=== PATIENT | female | born 1975 | race Caucasian/White ===

== ENCOUNTER 2019-02-07 17:59 | Inpatient (IN) | payer OTHER ==
[~2019-02-07] VITALS: Ht 157.5 cm; Wt 86.6 kg
[~2019-02-07 17:59] MED LIST: ATENOLOL 25 MG25 M1; BACTRIM; BACTRIM DS TAB1 EACH PO; BENADRYL ALLERG25 MG PO; BLOOD PRESSURE MED; BUTALB-ACETAMI1 EAC1 PO; BUTALB-APAP-CA1 EAC1 PO; CAPACET CAPSUL1 EACH; CIPRO500 MG PO; CIPROFLOXACIN500 M1 PO; CLONAZEPAM 1 MG1 M1 PO; ESGIC; ESGIC PLUS; FIORICET; FLEXERIL PO; HYDROCODON-ACE1 EAC7 PO; HYDROCODON-ACE1 EACH PO; IBUPROFEN 800800 M1 PO; K-DUR 20 MEQ T20 MEQ PO; KEFLEX500 MG PO; LISINOPRIL10 MG PO; MACROBID 100 M100 M1 PO; MEDROLDOSEPACK PO; METHOCARBAMOL500 M1; NEURONTIN 300300 M1; NEURONTIN 300300 M1 PO; NEURONTIN600 MG PO; NOHOMEMEDICATIONS; NORCO 5-325 TA1 EACH PO; ONDANSETRON HCL4 M2 PO; PEPCID AC20 M1 PO; PERCOCET 5-3251 EACH; PERCOCET 5-3251 EACH PO; PHENAZOPYRIDIN200 M2 PO; PHENERGAN 25 MG25 M1 PO; POTASSIUM20 PO; PREDNISONE 10 M10 M1 PO; PREDNISONE 20 M20 M1 PO; PROAIR HFA8.5 GM; PROPRANOLOL 4040 MG PO; RELPAX40 MG; ROBAXIN 750 MG750 M1 PO; SILVADENE20 GM TP; TAMSULOSIN HCL0.4 M1 PO; TAMSULOSIN HCL0.4 MG PO; TIZANIDINE HCL4 M1; TRAMADOL 50 MG50 MG; TRAMADOL 50 MG50 MG PO; VERAPAMIL ER180 M1; VICODIN 5-3001 EACH PO; VICODIN 5-5001 EACH PO; VICOPROFEN 2001 EACH PO; ZOFRAN 4 MG ORAL4 MG PO; ZOFRAN ODT4 MG PO; ZOFRAN4 MG PO; ZPAK PO; [UNRECOGNIZED DRUG - OTHER]
[2019-02-07 18:07] VITALS: BP 138/93
[2019-02-07 18:54] LABS: ABSOLUTE EOSINOPHILS 0.1 thou/uL (0.0-0.7); ABSOLUTE LYMPHOCYTES 0.7 thou/uL (0.8-5.3); ABSOLUTE MONOCYTES 1.3 thou/uL (0.0-1.2); ABSOLUTE NEUTROPHILS 9.8 thou/uL (1.6-8.1); BASOPHILS 0.1 %; EOSINOPHILS 0.6 %; HEMATOCRIT 34.8 % (37.0-47.0); HEMOGLOBIN 11.5 gm/dL (12.0-15.0); LYMPHOCYTES 5.7 %; MCH 28.7 pg (26.0-34.0); MCHC 33.2 g/dL (28.0-37.0); MCV 86.6 fL (80.0-100.0); MONOCYTES 10.7 %; MPV 8.6 fl. (7.2-11.1); NUCLEATED RBCS 0 /100WBC; PLATELET COUNT* 340 thou/uL (150-400); POLYS 82.9 %; RBC 4.02 mil/uL (4.20-5.00); WBC 11.8 thou/uL (4.0-11.0)
[2019-02-07 19:06] LABS: CALCIUM 8.7 mg/dL (8.5-10.1); CREATININE 0.7 mg/dL (0.6-1.3)
[2019-02-07 19:11] LABS: ALBUMIN 2.9 g/dL (3.4-5.0); TOTAL BILIRUBIN 0.5 mg/dL (<0.1-1.0); TOTAL PROTEIN 7.8 g/dL (6.4-8.2)
[2019-02-07 19:13] LABS: URINE BILIRUBIN NEGATIVE (Negative); URINE BLOOD 3+ (Negative); URINE CLARITY SL CLOUDY; URINE COLOR YELLOW; URINE GLUCOSE-RANDOM NEGATIVE (Negative); URINE KETONES NEGATIVE (Negative); URINE LEUKOCYTES-REFLEX 1+ (Negative); URINE PROTEIN 1+ (Negative)
[2019-02-07 19:15] LABS: URINE NITRITE-REFLEX POSITIVE (Negative)
[2019-02-07 19:21] LABS: SQUAMOUS 4-10 Moderate /LPF (0-3)
[2019-02-07 19:22] LABS: BACTERIA-REFLEX >30 Many /HPF (None Seen); CASTS None Seen /LPF (None Seen); CRYSTALS None Seen /LPF (None Seen); MUCUS >6 Heavy strn/LPF (None Seen); URINE RBC 3-10 Few /HPF (0-2); URINE WBC-REFLEX 6-15 Few /HPF (0-5)
[2019-02-07 19:23] LABS: WBC CLUMPS Few (None Seen)
[2019-02-07 21:06] LABS: AMP/METHAMP POSITIVE (Negative); BARBITURATES Negative (Negative); BENZODIAZEPINES Negative (Negative); COCAINE Negative (Negative); METHADONE Negative (Negative); OPIATES Negative (Negative); PCP Negative (Negative); THC Negative (Negative)
[2019-02-07 22:30] VITALS: BP 100/60
[2019-02-08 02:50] VITALS: BP 102/60
[2019-02-08 08:00] VITALS: BP 149/73
[2019-02-08 11:30] VITALS: BP 129/79
[2019-02-08 16:00] VITALS: BP 116/67
[2019-02-08 20:00] VITALS: BP 127/74
[2019-02-09] VITALS: BP 138/65
[2019-02-09 02:10] LABS: HIV-1/HIV-2 ANTIBODY Non Reactive (Non Reactive)
[2019-02-09 04:57] LABS: HEMOGLOBIN 9.8 gm/dL (12.0-15.0); MCH 29.6 pg (26.0-34.0); MCHC 33.7 g/dL (28.0-37.0); MCV 87.8 fL (80.0-100.0); MPV 8.7 fl. (7.2-11.1); RBC 3.3 mil/uL (4.20-5.00); RDW-CV 13.1 % (10.5-14.5); WBC 8.3 thou/uL (4.0-11.0)
[2019-02-09 05:05] LABS: CALCIUM 8.2 mg/dL (8.5-10.1); CREATININE 0.6 mg/dL (0.6-1.3); MAGNESIUM 1.9 mg/dL (1.8-2.4); POTASSIUM 3.6 mmol/L (3.5-5.1)
[2019-02-09 08:00] VITALS: BP 135/79
--- NOTE | 2019-02-09 12:25 | EKG ---
[place] [address] ELECTROCARDIOGRAM REPORT Name: ANJELICA GO Room: [place] [address] ADM IN ..#: [id number] Admission: 02/07/19 Attend Phys: Maycol Stubbs MD Discharge: Date of : 73 Report #: [id number] THIS REPORT FOR: //name// [facility] ED Test Date: 2019-02-07 Test Time: 18:56:19 Pat Name: ANJELICA GO Department: Room: [facility] Gender: F Scheduling Assistant: NATY Mina : 1975 Requested By: Ish Hooper Order Number: [id number] MD: Bob Craig Measurements Intervals [place] Rate: 109 P: 47 OK: 132 QRS: 40 QRSD: 101 T: 19 QT: 342 QTc: 461 Interpretive Statements Sinus tachycardia Probable left atrial enlargement Minimal ST depression, inferior leads No previous ECG available for comparison Electronically Signed On 02-09-2019 12:24:57 CDT by Bob Craig [email or web address] <ELECTRONICALLY SIGNED> By: Bob Craig MD, [facility] 02/09/19 1224 55 55 Bob Craig MD, FACC /EPI
[2019-02-09 16:11] VITALS: BP 138/82
--- NOTE | 2019-02-09 16:12 | 2DMMODE ---
[place] [address] 2 D/M-MODE ECHOCARDIOGRAM Name: ANJELICA GO Room: [facility] ADM IN [facility]#: [id number] Admission: 02/07/19 Attend Phys: Maycol Stubbs, Discharge: Date of : 73 Date of Service: 02/09/19 1611 Report #: [id number] THIS REPORT FOR: //name// APPROVED REPORT Study performed: 02/09/2019 14:09:14 EXAM: Comprehensive 2D, Doppler, and color-flow Echocardiogram Patient Location: In-Patient Room #: 227 Status: routine BSA: 1.74 HR: 86 bpm BP: 138/65 mmHg Rhythm: NSR Other Information Study Quality: Good Indications Sepsis rule out valvular vegetation 2D Dimensions IVSd: 12.00 (7-11mm) LVOT Diam: 20.28 (18-24mm) LVDd: 50.56 mm PWd: 11.39 (7-11mm) Ascending Ao: 27.59 (22-36mm) LVDs: 33.52 (25-40mm) Aortic Root: 29.95 mm Volumes Left Atrial Volume (Systole) LA ESV Index: 29.00 mL/m2 Aortic Valve AoV Peak Amarjit.: 1.34 m/s AO Peak Gr.: 7.16 mmHg LVOT Max P.76 mmHg AO Mean Gr.: 3.87 mmHg LVOT Mean P.48 mmHg LVOT Max V: 1.09 m/s AO V2 VTI: 26.00 cm LVOT Mean V: 0.74 m/s SUHAS (VTI): 2.88 cm2 LVOT V1 VTI: 23.15 cm Mitral Valve E/A Ratio: 1.71 MV Decel. Time: 221.70 [place] [address] 2 D/M-MODE ECHOCARDIOGRAM Name: ANJELICA GO Room: [address] [place] .R.#: [id number] Admission: 02/07/19 Attend Phys: Maycol Stubbs, Discharge: Date of : 73 Date of Service: 02/09/19 1611 Report #: [id number] MV E Max Amarjit.: 0.93 m/s MV PHT: 64.29 ms MVA (PHT): 3.42 cm2 TDI E/Lateral E': 4.65 E/Medial E': 7.15 Medial E' Amarjit.: 0.13 m/s Lateral E' Amarjit.: 0.20 m/s Pulmonary Valve PV Peak Amarjit.: 1.02 m/s PV Peak Gr.: 4.14 mmHg Tricuspid Valve RAP Estimate: 5.00 mmHg TR Peak Gr.: 22.72 mmHg RVSP: 27.00 mmHg PA Pressure: 27.00 mmHg Left Ventricle The left ventricle is normal size. There is normal LV segmental wall motion. Mild concentric left ventricular hypertrophy. Left ventricular systolic function is normal. The left ventricular ejection fraction is within the normal range. LVEF is 55-60%. The left ventricular diastolic function is normal. Right Ventricle The right ventricle is normal size. The right ventricular systolic function is normal. Atria Left atrium is mildly dilated. The right atrium size is normal. Aortic Valve The aortic valve is normal in structure. No aortic regurgitation is present. There is no aortic valvular stenosis. Mitral Valve The mitral valve is normal in structure. Trace mitral regurgitation. No evidence of mitral valve stenosis. Tricuspid Valve The tricuspid valve is normal in structure. Trace tricuspid regurgitation. estimated pa pressure 30 mm Hg Pulmonic Valve The pulmonary valve is normal in structure. [place] [address] 2 D/M-MODE ECHOCARDIOGRAM Name: ANJELICA GO [place] Room: [address] IN [facility]#: [id number] Admission: 02/07/19 Attend Phys: Maycol Stubbs, Discharge: Date of : 73 Date of Service: 02/09/19 1611 Report #: [id number] valvular regurgitation. Great Vessels The aortic root is normal in size. IVC is normal in size and collapses >50% with inspiration. Pericardium There is no pericardial effusion. <Conclusion> Mild concentric left ventricular hypertrophy. Left atrium is mildly dilated. LVEF is 55-60%. <ELECTRONICALLY SIGNED> By: Bob Craig MD, FACC 02/09/19 161 10 10 Bob Craig MD, FACC /INF
[2019-02-09 19:41] VITALS: BP 108/70
[2019-02-10 04:00] VITALS: BP 148/83
[2019-02-10 05:15] LABS: CALCIUM 8.4 mg/dL (8.5-10.1); CREATININE 0.7 mg/dL (0.6-1.3); MAGNESIUM 1.9 mg/dL (1.8-2.4); POTASSIUM 3.7 mmol/L (3.5-5.1)
[2019-02-10 07:11] LABS: HEPATITIS B SURFACE AG Negative (Negative)
[2019-02-10 08:00] VITALS: BP 127/71
[2019-02-10 11:58] VITALS: BP 128/63
[2019-02-10 15:51] VITALS: BP 116/80
[2019-02-11 08:00] VITALS: BP 140/98
[2019-02-11] MEDS ORDERED: PROBIOTIC1 EAC1 PO (11:04)
[2019-02-11] MEDS ORDERED: CEFUROXIME250 MG PO (11:04)
[2019-02-11 12:00] VITALS: BP 140/98; BP 152/91
== END 2019-02-11 17:40 | disposition home or self-care (01) | DRG 872 ==
LOC: M.ERS 17:59 → M.TBA-ER 20:49 → M.2W 20:49
PROVIDERS: Physician Assistant; ADMIT Internal Medicine
DX: A41.9 Sepsis, unspecified organism (principal); N12 Tubulo-interstitial nephritis, not specified as acute or chronic; E44.0 Moderate protein-calorie malnutrition; B96.89 Other specified bacterial agents as the cause of diseases classified elsewhere; M19.032 Primary osteoarthritis, left wrist; G43.909 Migraine, unspecified, not intractable, without status migrainosus; Z90.710 Acquired absence of both cervix and uterus; Z87.442 Personal history of urinary calculi; Z90.711 Acquired absence of uterus with remaining cervical stump; Z88.6 Allergy status to analgesic agent; Z88.0 Allergy status to penicillin; Z88.8 Allergy status to other drugs, medicaments and biological substances; Z68.34 Body mass index [BMI] 34.0-34.9, adult

== ENCOUNTER 2019-06-15 19:32 | Emergency (ER) | payer OTHER ==
[~2019-06-15] VITALS: Ht 157.5 cm; Wt 77.1 kg
[~2019-06-15 19:32] MED LIST changes: +CEFUROXIME250 MG PO; +PROBIOTIC1 EAC1 PO
[2019-06-15 19:40] VITALS: BP 168/90
[2019-06-15] MEDS ORDERED: HYDROCODON-ACE1 EAC8 PO (19:49)
[2019-06-15] MEDS ORDERED: CLEOCIN HCL150 MG PO (19:49)
== END 2019-06-15 20:08 | disposition home or self-care (01) ==
LOC: M.ERS 19:32
DX: K02.9 Dental caries, unspecified (principal); I10 Essential (primary) hypertension; G43.909 Migraine, unspecified, not intractable, without status migrainosus; Z90.49 Acquired absence of other specified parts of digestive tract; Z90.89 Acquired absence of other organs; Z90.710 Acquired absence of both cervix and uterus; Z86.14 Personal history of Methicillin resistant Staphylococcus aureus infection; Z88.5 Allergy status to narcotic agent; Z88.6 Allergy status to analgesic agent; Z88.8 Allergy status to other drugs, medicaments and biological substances

== ENCOUNTER 2020-02-10 17:10 | Emergency (ER) | payer OTHER ==
[~2020-02-10] VITALS: Ht 157.5 cm; Wt 83.9 kg
[~2020-02-10 17:10] MED LIST changes: +CLEOCIN HCL150 MG PO; +HYDROCODON-ACE1 EAC8 PO
[2020-02-10] MEDS ORDERED: ZESTORETIC 20-1 EACH PO (17:55)
[2020-02-10 18:44] VITALS: BP 150/100
--- NOTE | 2020-02-11 14:28 | EKG ---
[place] [address] ELECTROCARDIOGRAM REPORT Name: DONAVANANJELICA JO Room: [facility]#: [id number] Admission: 02/10/20 Attend Phys: Discharge: 02/10/20 Date of : 73 Date of Service: 02/10/20 173 Report #: [id number] THIS REPORT FOR: //name// [facility] ED Test Date: 2020-02-10 Test Time: 17:32:46 Pat Name: ANJELICA GO Department: Room: Gender: [employer]: : 1975 Requested By: Wander Peter Order Number: [id number] Sarah Beth MD: Augustin Hernandez Measurements Intervals [place] Rate: 103 P: 39 VT: 156 QRS: 29 QRSD: 93 T: 46 QT: 359 QTc: 470 Interpretive Statements Sinus tachycardia Probable left atrial enlargement Compared to ECG 02/07/2019 18:56:19 ST (T wave) deviation no longer present Electronically Signed On 02-11-2020 14:28:29 CDT by Augustin Hernandez [email or web address] <ELECTRONICALLY SIGNED> By: Augustin Hernandez MD, [facility] 02/11/20 1428 1732 1732 Augustin Hernandez MD, [facility] /EPI
== END 2020-02-10 18:47 | disposition home or self-care (01) ==
LOC: M.ERS 17:10
DX: I10 Essential (primary) hypertension (principal); G43.909 Migraine, unspecified, not intractable, without status migrainosus; Z88.6 Allergy status to analgesic agent; Z88.0 Allergy status to penicillin; Z88.5 Allergy status to narcotic agent; Z88.8 Allergy status to other drugs, medicaments and biological substances; Z87.442 Personal history of urinary calculi; Z98.51 Tubal ligation status; Z90.711 Acquired absence of uterus with remaining cervical stump; Z86.14 Personal history of Methicillin resistant Staphylococcus aureus infection; Z90.49 Acquired absence of other specified parts of digestive tract; Z87.440 Personal history of urinary (tract) infections

== ENCOUNTER 2020-05-01 18:42 | Emergency (ER) | payer OTHER ==
[~2020-05-01] VITALS: Ht 157.5 cm; Wt 78.9 kg
[~2020-05-01 18:42] MED LIST changes: +ZESTORETIC 20-1 EACH PO
[2020-05-01 19:03] LABS: URINE BILIRUBIN NEGATIVE (Negative); URINE BLOOD 3+ (Negative); URINE CLARITY CLEAR; URINE COLOR YELLOW; URINE GLUCOSE-RANDOM NEGATIVE (Negative); URINE KETONES TRACE (Negative); URINE LEUKOCYTES-REFLEX TRACE (Negative); URINE NITRITE-REFLEX NEGATIVE (Negative); URINE PROTEIN 1+ (Negative); URINE UROBILINOGEN >= 8.0 E.U./dl (0.2-1.0)
[2020-05-01 19:09] LABS: MUCUS 0-3 Light strn/LPF (None Seen); SQUAMOUS >10 Many /LPF (0-3)
[2020-05-01 19:10] LABS: BACTERIA-REFLEX 1-9 Few /HPF (None Seen); CASTS None Seen /LPF (None Seen); CRYSTALS None Seen /LPF (None Seen); URINE RBC >20 Many /HPF (0-2); URINE WBC-REFLEX 6-15 Few /HPF (0-5)
[2020-05-01 19:14] LABS: INFLUENZA A ANTIGEN Negative (Negative); INFLUENZA B ANTIGEN Negative (Negative)
[2020-05-01] MEDS ORDERED: ZOFRAN ODT4 MG SUBLING (19:49)
[2020-05-01] MEDS ORDERED: NORCO 5-325 TA1 EAC2 PO (19:49)
[2020-05-01] MEDS ORDERED: MACROBID 100 M100 M1 PO (19:49)
[2020-05-01 20:27] VITALS: BP 140/86
== END 2020-05-01 20:28 | disposition home or self-care (01) ==
LOC: M.ERS 18:42
PROVIDERS: Nurse Practitioner Family
DX: N39.0 Urinary tract infection, site not specified (principal); Z20.828 Contact with and (suspected) exposure to other viral communicable diseases; I10 Essential (primary) hypertension; G43.909 Migraine, unspecified, not intractable, without status migrainosus; Z90.710 Acquired absence of both cervix and uterus; Z87.442 Personal history of urinary calculi; Z90.49 Acquired absence of other specified parts of digestive tract; Z98.51 Tubal ligation status; Z86.14 Personal history of Methicillin resistant Staphylococcus aureus infection; Z88.5 Allergy status to narcotic agent; Z88.0 Allergy status to penicillin; Z88.6 Allergy status to analgesic agent; Z88.8 Allergy status to other drugs, medicaments and biological substances